=== PATIENT | female | born 2000 | race Caucasian/White ===

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

== ENCOUNTER 2019-01-01 14:12 | Emergency (ER) | payer OTHER ==
[2019-01-01 14:29] VITALS: BP 110/66
[2019-01-01] MEDS ORDERED: ACETAMINOPHEN 325 MG TABLET PO ONE (14:49)
[2019-01-01] MEDS ORDERED: SULFAMETHOXAZOLE/TRIMETHOPRIM 800-160 MG TABLET PO ONE (14:49)
--- NOTE | 2019-01-01 14:52 | ER Document Report ---
HPI - HPI Patient complains to provider of: Skin infection Time Seen by Provider: 01/01/19 14:45 Pain Level: 3 Context: Patient is a 18-year-old female presents to the emergency department for redness and swelling noted to an umbilical piercing she received 3 weeks ago. Patient states she was able to take out the umbilical ring yesterday but noted some increased redness and swelling which is why she presents to the emergency room. Patient denies any history of MRSA infections or ever needing to be on antibiotic for skin infections. Past medical history: Asthma, scoliosis Medications: Albuterol, naproxen Allergies: Seroquel, Benadryl - REPRODUCTIVE Reproductive: DENIES: : Past Medical History - General Information source: Patient - Social History Smoking Status: Unknown if Ever Smoked Family History: Reviewed & Not Pertinent, Other - substance use disorder Pulmonary Medical History: Reports: Hx Asthma Renal/ Medical History: Denies: Hx Peritoneal Dialysis Psychiatric Medical History: Reports: Hx Anxiety, Hx Depression Past Surgical History: Reports: Hx Genitourinary Surgery - D&C Vertical Provider Document - CONSTITUTIONAL Agree With Documented VS: Yes Notes: GENERAL: Alert, interacts well. No acute distress. HEAD: Normocephalic, atraumatic. EYES: Pupils equal, round, and reactive to light. Extraocular movements intact. ENT: Oral mucosa moist, tongue midline. NECK: Full range of motion. Supple. Trachea midline. LUNGS: Clear to auscultation bilaterally, no wheezes, rales, or rhonchi. No respiratory distress. HEART: Regular rate and rhythm. No murmur ABDOMEN: Soft, non-tender. Non-distended. Bowel sounds present in all 4 quadrants. 2 cm x 2 cm generalized erythema noted around the patient's umbilicus. No obvious areas of induration or fluctuance noted. EXTREMITIES: Moves all 4 extremities spontaneously. No edema, normal radial and dorsalis pedis pulses bilaterally. No cyanosis. BACK: no cervical, thoracic, lumbar midline tenderness. No saddle anesthesia, normal distal neurovascular exam. NEUROLOGICAL: Alert and oriented x3. Normal speech. cranial nerves II through XII grossly intact PSYCH: Normal affect, normal mood. SKIN: Warm, dry, normal turgor. - INFECTION CONTROL TRAVEL OUTSIDE OF THE [place] IN LAST 30 DAYS: No Course - Re-evaluation Re-evalutation: 01/01/19 14:51 Discussed with the patient use of oral antibiotics with close return precautions. She voices understanding is stable for discharge. - Vital Signs Vital signs: Temp Pulse Resp BP Pulse Ox 98.2 F 90 14 110/66 96 01/01/19 14:27 01/01/19 14:27 01/01/19 14:27 01/01/19 14:27 01/01/19 14:27 Discharge - Discharge Clinical Impression: Cellulitis Qualifiers: Site of cellulitis: trunk Site of cellulitis of trunk: umbilicus Qualified Code(s): L03.316 - Cellulitis of umbilicus Condition: Stable Disposition: HOME, SELF-CARE Instructions: Cellulitis ([facility]) Additional Instructions: As we discussed you have been seen and treated in the emergency department for infection noted around her umbilicus. Please take antibiotics as prescribed. Should you be on antibiotics for 48 hours and see no signs of improvement in your infection please return to the emergency room. Please also have a follow- up with your primary care provider. Please return to the emergency room as well should you have any other concerning symptoms. Prescriptions: Sulfamethoxazole/Trimethoprim [Bactrim Ds Tablet] 1 each PO BID 7 Days #14 tablet Referrals: BERTHA ECHEVERRIA FNP [Primary Care Provider] - Follow up as needed
== END 2019-01-01 15:05 | disposition home or self-care (01) ==
LOC: ER 14:12
DX: L03.316 Cellulitis of umbilicus (principal)
CPT/HCPCS: 99282

== ENCOUNTER 2019-02-26 20:13 | Emergency (ER) | payer OTHER ==
[2019-02-26] MEDS ORDERED: PROMETHAZINE HCL 25 MG TABLET PO ONE (20:36)
--- NOTE | 2019-02-26 20:37 | ER Document Report ---
ED Medical Screen (RME) - General Chief Complaint: Nausea/Vomiting Stated Complaint: ABDOMINAL PAIN Time Seen by Provider: 02/26/19 20:29 Primary Care Provider: BERTHA ECHEVERRIA FNP [Primary Care Provider] - Follow up as needed Notes: Patient states she is currently 6 weeks G4, P2 and complains of left lower quadrant abdominal pain. Patient also reports nausea with dysuria. I have greeted and performed a rapid initial assessment of this patient. A comprehensive ED assessment and evaluation of the patient, analysis of test results and completion of the medical decision making process will be conducted by additional ED providers. TRAVEL OUTSIDE OF THE [place] IN LAST 30 DAYS: No - Related Data Allergies/Adverse Reactions: cat dander Allergy (Verified 01/01/19 14:22) diphenhydramine [From Benadryl] Allergy (Verified 01/01/19 14:22) quetiapine [From Seroquel] Allergy (Verified 01/01/19 14:22) Past Medical History Pulmonary Medical History: Reports: Hx Asthma Renal/ Medical History: Denies: Hx Peritoneal Dialysis Psychiatric Medical History: Reports: Hx Anxiety, Hx Depression Past Surgical History: Reports: Hx Genitourinary Surgery - D&C Physical Exam - Vital signs Vitals: Temp Pulse Resp BP Pulse Ox 98.4 F 84 16 112/59 L 98 02/26/19 20:22 02/26/19 20:22 02/26/19 20:22 02/26/19 20:22 02/26/19 20:22 - Abdominal Tenderness: Tender - Left lower pelvic Course - Vital Signs Vital signs: Temp Pulse Resp BP Pulse Ox 98.4 F 84 16 112/59 L 98 02/26/19 20:22 02/26/19 20:22 02/26/19 20:22 02/26/19 20:22 02/26/19 20:22 Doctor's Discharge - Discharge Referrals: BERTHA ECHEVERRIA FNP [Primary Care Provider] - Follow up as needed
[2019-02-26 21:05] LABS: ABSOLUTE BASOPHILS # (AUTO) 0.1 10^3/uL (0.0-0.2); ABSOLUTE EOSINOPHILS # (AUTO) 0.3 10^3/uL (0.0-0.6); ABSOLUTE LYMPHOCYTES (AUTO) 2.7 10^3/uL (0.5-4.7); ABSOLUTE MONOCYTES (AUTO) 0.6 10^3/uL (0.1-1.4); BASOPHILS % (AUTO) 0.8 % (0-2); EOSINOPHILS % (AUTO) 2.9 % (0-6); HEMATOCRIT 40.6 % (36.0-47.0); HEMOGLOBIN 13.8 g/dL (12.0-15.5); LYMPHOCYTES % (AUTO) 31.2 % (13-45); MEAN CORPUSCULAR HEMOGLOBIN 31.1 pg (27.0-33.4); MEAN CORPUSCULAR HGB CONC 33.9 g/dL (32.0-36.0); MEAN CORPUSCULAR VOLUME 92 fl (80-97); MONOCYTES % (AUTO) 7.4 % (3-13); PLATELET COUNT 284 10^3/uL (150-450); RED BLOOD COUNT 4.42 10^6/uL (3.72-5.28); SEGMENTED NEUTROPHILS % (AUTO) 57.7 % (42-78); TOTAL CELLS COUNTED % (AUTO) 100 %; WHITE BLOOD COUNT 8.6 10^3/uL (4.0-10.5)
[2019-02-26 21:10] LABS: AMORPHOUS SEDIMENT,URINE TRACE /HPF; APPEARANCE,URINE CLOUDY; BILIRUBIN,URINE NEGATIVE (NEGATIVE); COLOR,URINE YELLOW; GLUCOSE, URINE NEGATIVE (NEGATIVE); KETONES,URINE NEGATIVE (NEGATIVE); LEUKOCYTE ESTERASE,URINE NEGATIVE (NEGATIVE); NITRITE,URINE NEGATIVE (NEGATIVE); PROTEIN,URINE NEGATIVE (NEGATIVE)
[2019-02-26 22:56] LABS: CHLAM PCR NOT DETECTED (NOT DETECT); GON PCR NOT DETECTED (NOT DETECT)
--- NOTE | 2019-02-26 22:56 | RADIOLOGY REPORT (SQ) ---
EXAM DESCRIPTION: [facility]: US TRANSVAGINAL CLINICAL HISTORY: 19 years Female; LLQ pain TECHNIQUE: Endovaginal pelvic ultrasound was performed. COMPARISON: None. FINDINGS: Uterus: 9.2 x 5 x 5.6 cm. Intrauterine gestational sacs identified, not measured by lithograph operator. pole is identified, CRL 0.63 cm, 6 weeks 3 days heart rate 1:15 BPM Yolk sac is present No adjacent hematoma Cervix 3.1 cm long, closed Right ovary: 2 x 1.4 x 1.8 cm. Normal vascular flow on Doppler. Left ovary: Not visualized. No free fluid. IMPRESSION: 1. Single viable IUP, EGA 6 weeks 3 days, EDC 10/19/2019 2. No acute findings 3. Left ovary not visualized due to bowel gas artifact.
--- NOTE | 2019-02-26 23:38 | ER Document Report ---
ED General - General Chief Complaint: Nausea/Vomiting Stated Complaint: ABDOMINAL PAIN Time Seen by Provider: 02/26/19 20:29 Primary Care Provider: BERTHA ECHEVERRIA FNP [Primary Care Provider] - Follow up as needed Notes: Patient is a 19-year-old female at approximately 6 weeks by LMP who presents due to concerns of lower abdominal cramping. Patient states that her symptoms started over the past several weeks but is gotten progressively worse prompting her to come to the emergency department today. She regards the pain is her lower abdomen as being an intermittent, aching pain without focal localization. Nothing seems to improve the pain, moving tends to worsen the pain. Denies history of similar symptoms in the past. Denies any vaginal bleeding, vaginal discharge or dysuria. Has not seen her EQUIPMENT OPERATION INSTRUCTOR regarding today's concerns. She notes that she is also had some nausea and vomiting since finding out she is . TRAVEL OUTSIDE OF THE [place] IN LAST 30 DAYS: No - Related Data Allergies/Adverse Reactions: cat dander Allergy (Verified 01/01/19 14:22) diphenhydramine [From Benadryl] Allergy (Verified 01/01/19 14:22) quetiapine [From Seroquel] Allergy (Verified 01/01/19 14:22) Past Medical History - General Information source: Patient - Social History Smoking Status: Former Smoker Chew tobacco use (# tins/day): No Frequency of alcohol use: Rare Drug Abuse: None Lives with: Spouse/Significant other Family History: Reviewed & Not Pertinent, Other - substance use disorder Patient has suicidal ideation: No Patient has homicidal ideation: No Pulmonary Medical History: Reports: Hx Asthma Renal/ Medical History: Denies: Hx Peritoneal Dialysis Psychiatric Medical History: Reports: Hx Anxiety, Hx Depression Past Surgical History: Reports: Hx Genitourinary Surgery - D&C Review of Systems - Review of Systems Notes: Constitutional: Negative for fever. HENT: Negative for sore throat. Eyes: Negative for visual changes. Cardiovascular: Negative for chest pain. Respiratory: Negative for shortness of breath. Gastrointestinal: Positive for lower abdominal pain, vomiting Genitourinary: Negative for dysuria. Musculoskeletal: Negative for back pain. Skin: Negative for rash. Neurological: Negative for headaches, weakness or numbness. 10 point ROS negative except as marked above and in HPI. Physical Exam - Vital signs Vitals: Temp Pulse Resp BP Pulse Ox 98.4 F 84 16 112/59 L 98 02/26/19 20:22 02/26/19 20:22 02/26/19 20:22 02/26/19 20:22 02/26/19 20:22 Interpretation: Normal Notes: PHYSICAL EXAMINATION: GENERAL: Well-appearing, well-nourished and in no acute distress. HEAD: Atraumatic, normocephalic. EYES: Pupils equal round and reactive to light, extraocular movements intact, sclera anicteric, conjunctiva are normal. ENT: nares patent, oropharynx clear without exudates. Moist mucous membranes. NECK: Normal range of motion, supple without lymphadenopathy LUNGS: Breath sounds clear to auscultation bilaterally and equal. No wheezes rales or rhonchi. HEART: Regular rate and rhythm without murmurs ABDOMEN: Soft, nontender, normoactive bowel sounds. No guarding, no rebound. No masses appreciated. EXTREMITIES: Normal range of motion, no pitting or edema. No cyanosis. NEUROLOGICAL: No focal neurological deficits. Moves all extremities spontaneously and on command. PSYCH: Normal mood, normal affect. SKIN: Warm, Dry, normal turgor, no rashes or lesions noted. Course - Re-evaluation Re-evalutation: 02/26/19 23:29 Patient is currently and presenting with lower abdominal pain. No vaginal bleeding or discharge. Formal ultrasound shows a viable intrauterine , appropriate cardiac activity and active movement. Patient denies any dysuria and urinalysis is not consistent with an acute urinary tract infection. The patient does not have any focal right lower quadrant tenderness, rebound or guarding to suggest acute appendicitis. No right upper quadrant tenderness to suggest cholestasis of or an acute cholecystitis. Patient has tolerated oral intake here in the emergency depar tment without difficulty. Vitals are within normal limits. At this time will discharge with return precautions and follow-up recommendations. Verbal discharge instructions given a the bedside and opportunity for questions given. Medication warnings reviewed. Patient is in agreement with this plan and has verbalized understanding of return precautions and the need for primary care follow-up in the next 24-72 hours. - Vital Signs Vital signs: Temp Pulse Resp BP Pulse Ox 97.9 F 75 16 90/51 L 98 02/27/19 00:59 02/27/19 00:59 02/27/19 00:59 02/27/19 00:59 02/27/19 00:59 - Laboratory Result Diagrams: 02/26/19 20:50 Laboratory results interpreted by me: 02/26/19 02/26/19 20:50 20:50 Beta HCG, Quant [id number] H Urine Urobilinogen 2.0 H - Diagnostic Test Radiology reviewed: Reports reviewed Discharge - Discharge Clinical Impression: First trimester , related bilateral lower abdominal pain, antepartum Condition: Good Disposition: HOME, SELF-CARE Additional Instructions: You were seen for abdominal pain during . Your ultrasound and labs are normal today. The exact cause your pain is uncertain but is likely related to your developing baby. Please follow-up with your EQUIPMENT OPERATION INSTRUCTOR in the next 24-48 hours. Return to the emergency department immediately if you have worsening of your pain, have persistent vomiting, develop a fever of greater than 100.4F, begin to have vaginal bleeding, or any other symptoms that are worrisome to you. Referrals: BERTHA ECHEVERRIA FNP [Primary Care Provider] - Follow up as needed
[2019-02-27 01:02] VITALS: BP 90/51
[2019-02-27] MEDS ORDERED: ONDANSETRON ODT 4 MG TAB (6 TAB/ER DISP) PO PRN (01:05)
== END 2019-02-27 01:07 | disposition home or self-care (01) ==
LOC: ER 20:13
DX: O26.91 Pregnancy related conditions, unspecified, first trimester (principal); R10.30 Lower abdominal pain, unspecified; Z3A.01 Less than 8 weeks gestation of pregnancy
CPT/HCPCS: 36415; 76817; 81001; 84702; 85025; 87086; 87491; 87591; 99284